=== PATIENT | male | born 1990 | race Caucasian/White ===

== ENCOUNTER 2018-10-02 19:14 | Emergency (ER) | payer OTHER ==
--- NOTE | 2018-10-02 19:32 | PDOC ---
Rapid Medical Evaluation Time Seen by Provider: 10/02/18 19:29 Medical Evaluation: Allergies Allergy/AdvReac Type Severity Reaction Status Date / Time No Known Allergies Allergy Verified 07/07/15 00:08 10/02/18 19:30 Pt c/o: cp and dizziness since this afternoon, hx anxiety, denies drugs, recent inguinal hernia repair Pt on brief exam: vss, lcta Pt ordered for: ekg, cbc, comp, ua pt to proceed to the ED Discharge Disposition - Diagnosis Dizziness - Referrals - Patient Instructions - Post Discharge Activity
[2018-10-02 19:51] VITALS: BP 135/82; PULSE 85; TEMP 98.9; BMI 29.2
[2018-10-02 20:23] LABS: BASO % 0.7 % (0-2.0); EOS % 0.4 % (0-4.5); HEMATOCRIT 44.9 % (35.4-49); HEMOGLOBIN 15.2 GM/dL (11.7-16.9); LYMPH % 21.1 % (8-40); MCH 29.4 pg (25.7-33.7); MCHC 33.9 g/dl (32.0-35.9); MEAN CELL VOLUME 86.7 fl (80-96); MONO % 5.8 % (3.8-10.2); PLATELET COUNT 171 K/MM3 (134-434); RBC 5.18 M/mm3 (4.00-5.60); RDW 14.8 % (11.9-15.9); WHITE BLOOD COUNT 7.2 K/mm3 (4.0-10.0)
[2018-10-02 20:24] LABS: PH,URINE 6.5 (5.0-8.0); URINE APPEARANCE CLEAR; URINE BILIRUBIN NEGATIVE (NEGATIVE); URINE COLOR YELLOW; URINE GLUCOSE (UA) NEGATIVE (NEGATIVE); URINE KETONE NEGATIVE (NEGATIVE); URINE LEUK ESTERASE NEGATIVE (NEGATIVE); URINE NITRITE NEGATIVE (NEGATIVE); URINE PROTEIN NEGATIVE (NEGATIVE); URINE UROBILINOGEN 0.2 mg/dL (0.2-1.0)
--- NOTE | 2018-10-02 20:39 | PDOC ---
History of Present Illness - General Chief Complaint: Palpitations Stated Complaint: DIZZINESS/PALPATATIONS Time Seen by Provider: 10/02/18 19:29 History Source: Patient Exam Limitations: Clinical Condition - History of Present Illness Initial Comments: 10/02/18 20:34 Patient with history of anxiety and no other medical history present with complaint of sudden onset of rapid heartbeat with shortness of breath sensation while watching TV over 2 hours ago. Patient reported he was watching TV yesterday feeling the heart beating fast and tried drinking water to see if resolved but never resolved so he called 911. Denies chest pain now, dizziness, nausea or vomiting or sweats. Denies numbness or tingling sensation. Denies any other symptoms Timing/Duration: 1-3 hours, resolved prior to arrival Past History - Past Medical History Allergies/Adverse Reactions: Allergies Allergy/AdvReac Type Severity Reaction Status Date / Time No Known Allergies Allergy Verified 07/07/15 00:08 Home Medications: Ambulatory Orders Dibucaine 1% Top/Rectal Oint [Nupercainal (NF) -] 1 applic RC ASDIR #1 tube 09/15 levoFLOXacin [Levaquin -] 500 mg PO DAILY #7 tablet 07/07/15 metroNIDAZOLE [Flagyl -] 500 mg PO BID #14 tablet 07/07/15 COPD: No - Surgical History Abdominal Surgery: Yes (hernia repair) Appendectomy: Yes - Suicide/Smoking/Psychosocial Hx Smoking History: Never smoked Have you smoked in the past 12 months: No Information on smoking cessation initiated: No Hx Alcohol Use: No Drug/Substance Use Hx: No Review of Systems - Review of Systems Able to Perform ROS?: Yes Is the patient limited Portuguese proficient: No Constitutional: No: Malaise, Weakness HEENTM: No: Symptoms Reported, See HPI, Eye Pain, Blurred Vision, Tearing, Recent change in vision, Double Vision, Cataracts, Ear Pain, Ocular Prothesis, Ear Discharge, Nose Pain, Nose Congestion, Tinnitus, Nose Bleeding, Hearing Loss , Throat Pain, Throat Swelling, Mouth Pain, Dental Problems, Difficulty Swallowing, Mouth Swelling, Other Respiratory: Yes: Symptoms reported, See HPI, SOB at Rest (resolved). No: Cough , Orthopnea, Shortness of Breath, SOB with Exertion, Stridor, Wheezing, Productive cough, Hemoptysis, Other Cardiac (ROS): Yes: Symptoms Reported, See HPI, Palpitations. No: Chest Pain, Edema, Irregular Heart Rate, Lightheadedness, Syncope, Chest Tightness, Other ABD/GI: No: Nausea, Vomiting Neurological: No: Headache, Dizziness All Other Systems: Reviewed and Negative *Physical Exam - Vital Signs Last Vital Signs Temp Pulse Resp BP Pulse Ox 98.9 F 85 18 135/82 100 10/02/18 19:32 10/02/18 19:32 10/02/18 19:32 10/02/18 19:32 10/02/18 19:32 - Physical Exam Comments: 10/02/18 20:40 GENERAL: Well developed, well nourished. Awake and alert. No acute distress. HEENT: Normocephalic, atraumatic. PERRLA, EOMI. No conjunctival pallor. Sclera are non-icteric. Moist mucous membranes. Oropharynx is clear. NECK: Supple. Full ROM. CARDIOVASCULAR: Regular rate and rhythm. No murmurs, rubs, or gallops. Distal pulses are 2+ and symmetric. PULMONARY: No evidence of respiratory distress. Lungs clear to auscultation bilaterally. No wheezing, rales or rhonchi. ABDOMINAL: Soft. Non-tender. Non-distended. No rebound or guarding. No organomegaly. Normoactive bowel sounds. MUSCULOSKELETAL Normal range of motion at all joints. EXTREMITIES: No cyanosis. No clubbing. No edema. SKIN: Warm and dry. Normal capillary refill. NEUROLOGICAL: Alert, awake, appropriate. Gait is normal without ataxia. PSYCHIATRIC: Cooperative. Good eye contact. Appropriate mood General Appearance: Yes: Nourished, Appropriately Dressed. No: Apparent Distress ED Treatment Course - LABORATORY CBC & Chemistry Diagram: 10/02/18 20:00 - ADDITIONAL ORDERS Additional order review: Laboratory Results 10/02/18 20:00 Urine Color Yellow Urine Appearance Clear Urine pH 6.5 Ur Specific [place] 1.000 L Urine Protein Negative Urine Glucose (UA) Negative Urine Ketones Negative Urine Blood Negative Urine Nitrite Negative Urine Bilirubin Negative Urine Urobilinogen 0.2 Ur Leukocyte Esterase Negative - RADIOLOGY Radiology Studies Ordered: Category Date Time Status CHEST PA & LAT [RAD] Stat Radiology 10/02/18 20:33 Ordered Medical Decision Making - Medical Decision Making 10/02/18 20:39 Patient with history of anxiety and no other medical history present with complaint of sudden onset of rapid heartbeat with shortness of breath sensation while watching TV over 2 hours ago. Patient reported he was watching TV yesterday feeling the heart beating fast and tried drinking water to see if resolved but never resolved so he called 911. Denies chest pain now, dizziness, nausea or vomiting or sweats. Denies numbness or tingling sensation. Denies any other symptoms Clinical exam unremarkable with normal cardio and lung exam. Patient no acute distress. EKG shows normal sinus rhythm. Symptoms likely anxiety versus less likely cardiogenic pain. CBC, CMP and cardiac profile lab ordered. Checks x-ray ordered to rule out acute pathology 10/02/18 21:10 CBC,cardiac profile lab unremarkable. Patient asymptomatic. CXR shows no acute pathology. Will repeat cardiac lab in 3 hours for reassessment 10/02/18 22:24 Patient report he is always feeling tired and snores a lot when he sleeps. Report feeling tired now but denies any other symptoms 10/03/18 01:11 repeat cardiac profile negative. Patient asymptomatic and stable for discharge *DC/Admit/Observation/Transfer Diagnosis at time of Disposition: Dizziness, Palpitations Sleep apnea syndrome Qualifiers: Sleep apnea type: unspecified type Qualified Code(s): G47.30 - Sleep apnea, unspecified - Discharge Dispostion Condition at time of disposition: Stable Decision to Admit order: No - Referrals Referrals: Titus Blanc MD [Staff Physician] - Con Avila MD [Staff Physician] - - Patient Instructions Printed Discharge Instructions: DI for Obstructive Sleep Apnea -- Adult, DI for Palpitations Additional Instructions: Your labs and chest x-ray is normal. Your symptoms could be caused by sleep apnea. Even though your EKG was normal now, your might still have cardiac problem. Follow-up with referred bottom precipitator operator Dr. Gaming as soon as possible for evaluation and possible cardiac holter monitor. Follow-up with referred coding clerk Dr Avila for evaluation of sleep apnea - Post Discharge Activity
--- NOTE | 2018-10-03 10:15 | EKG ---
Test Reason : Blood Pressure : / mmHG Vent. Rate : 087 BPM Atrial Rate : 087 BPM P-R Int : 126 ms QRS Dur : 080 ms QT Int : 342 ms P-R-T Axes : 031 015 -08 degrees QTc Int : 411 ms NORMAL SINUS RHYTHM NONSPECIFIC T WAVE ABNORMALITY ABNORMAL ECG NO PREVIOUS ECGS AVAILABLE Confirmed by GERHARD MAYA MD ([id number]) on 10/03/2018 10:14:48 AM Referred By: Confirmed By:GERHARD MAYA MD
== END 2018-10-03 01:19 | disposition home or self-care (01) ==
LOC: JER 19:14
DX: R42 Dizziness and giddiness (principal); R00.2 Palpitations; G47.30 Sleep apnea, unspecified; F41.9 Anxiety disorder, unspecified
CPT/HCPCS: 36415; 71046-TC-FY; 81003; 82550; 84484; 85025; 93005; 93010; 99283-25

== ENCOUNTER 2018-11-28 20:24 | Emergency (ER) | payer OTHER ==
[2018-11-28 20:32] VITALS: BP 144/88; PULSE 105; TEMP 98.2; BMI 29.5
--- NOTE | 2018-11-28 20:33 | PDOC ---
Rapid Medical Evaluation Chief Complaint: Eye Problem Time Seen by Provider: 11/28/18 20:29 Medical Evaluation: Allergies Allergy/AdvReac Type Severity Reaction Status Date / Time No Known Allergies Allergy Verified 07/07/15 00:08 11/28/18 20:30 28 year old male c/o left eye lid swelling x 2 days. reports slight blurred vision when opening and closing the eye. PE: patient alert ox3. left eye lid swelling. slight conjunctival erythema A: left eye lid swelling P: patient to fast track for further management of care. Discharge Disposition - Diagnosis Hordeolum externum left eye, unspecified eyelid Qualifiers: Eyelid: upper Qualified Code(s): H00.014 - Hordeolum externum left upper eyelid - Referrals - Patient Instructions - Post Discharge Activity
[2018-11-28] MEDS ORDERED: ERYTHROMYCIN 0.5% OPHTHALMIC OINTMENT 3.5 GM TUBE OS ONE (20:56)
--- NOTE | 2018-11-28 20:56 | PDOC ---
History of Present Illness - General Chief Complaint: Eye Problem Stated Complaint: eye problem Time Seen by Provider: 11/28/18 20:29 History Source: Patient - History of Present Illness Initial Comments: 11/28/18 20:56 Chief complaint: Eye swelling Patient is a healthy 28-year-old male is complaining of 2 days of left eye swelling and tearing. A little itching. Patient does not wear contacts. GENERAL/CONSTITUTIONAL: No fever, weakness. dizziness HEAD, EYES, EARS, NOSE AND THROAT: No change in vision. + Eye swelling and pain. No ear pain or discharge. No sore throat. CARDIOVASCULAR: No chest pain RESPIRATORY: No shortness of breath or cough GASTROINTESTINAL: No pain, nausea, vomiting, diarrhea or constipation GENITOURINARY: No dysuria MUSCULOSKELETAL: No neck or back pain SKIN: No rash NEUROLOGIC: No headache, vertigo, loss of consciousness, or loss of sensation. GENERAL: The patient is awake, alert, and fully oriented, in no acute distress. HEAD: Normal with no signs of trauma. EYES: Pupils equal, round and reactive to light, sclera anicteric, conjunctiva with slight injection, upper eyelid is mildly edematous with tenderness at the lid line and small raised area that is tender, lower lids slightly edematous, no tenderness. No signs of gross infection. No hyphema, fundal exam grossly normal ENT: pharynx: no erythema, no exudate, uvula midline NECK: supple CHEST: clear, nontender, rr ABD: soft, nontender BACK: no tenderness or signs of injury EXTREMITIES: Normal range of motion, no edema. NEUROLOGICAL: Normal speech, normal gait. SKIN: Warm, Dry 11/28/18 21:00 Past History - Past Medical History Allergies/Adverse Reactions: Allergies Allergy/AdvReac Type Severity Reaction Status Date / Time fentanyl Allergy Verified 11/28/18 20:29 Home Medications: Ambulatory Orders Dibucaine 1% Top/Rectal Oint [Nupercainal (NF) -] 1 applic RC ASDIR #1 tube 09/15 levoFLOXacin [Levaquin -] 500 mg PO DAILY #7 tablet 07/07/15 metroNIDAZOLE [Flagyl -] 500 mg PO BID #14 tablet 07/07/15 COPD: No - Surgical History Abdominal Surgery: Yes (hernia repair) Appendectomy: Yes - Immunization History Immunization Up to Date: Yes - Suicide/Smoking/Psychosocial Hx Smoking History: Never smoked Have you smoked in the past 12 months: No Information on smoking cessation initiated: No Hx Alcohol Use: No Drug/Substance Use Hx: No *Physical Exam - Vital Signs Last Vital Signs Temp Pulse Resp BP Pulse Ox 98.2 F 105 H 17 144/88 96 11/28/18 20:30 11/28/18 20:30 11/28/18 20:30 11/28/18 20:30 11/28/18 20:30 Medical Decision Making - Medical Decision Making 11/28/18 2 Healthy 28-year-old male with 2 days of left eye swelling, discomfort, tearing and itching. Vision is intact, there is no swelling to the eye itself, the eye lid has minimal swelling, no signs of periorbital cellulitis. We will give patient erythromycin ointment as there is tenderness and a little bit of inflammation at the lip line, will also recommend Claritin for the swelling. Patient will need to follow-up with woods laborer *DC/Admit/Observation/Transfer Diagnosis at time of Disposition: Hordeolum externum left eye, unspecified eyelid Qualifiers: Eyelid: upper Qualified Code(s): H00.014 - Hordeolum externum left upper eyelid - Discharge Dispostion Disposition: HOME Condition at time of disposition: Stable - Referrals - Patient Instructions Additional Instructions: Use the erythromycin ointment 4 times a day 5-7 days as shown You can take Claritin daily for the itching and swelling and tearing. Return to the ER if fever, redness extends around the eye or worsening pain Follow-up with woods laborer tomorrow - Post Discharge Activity
[2018-11-28] MEDS ORDERED: ERYTHROMYCIN 0.5% OPHTHALMIC OINTMENT 3.5 GM TUBE ONE (20:58)
== END 2018-11-28 21:02 | disposition home or self-care (01) ==
LOC: JERFT 20:24
DX: H00.014 Hordeolum externum left upper eyelid (principal)
CPT/HCPCS: 99281-25

== ENCOUNTER 2020-06-12 17:21 | Emergency (ER) | payer OTHER ==
[2020-06-12 17:45] VITALS: BP 114/50; PULSE 98; TEMP 98.5; BMI 29.8
== END 2020-06-12 18:04 | disposition home or self-care (01) ==
LOC: JERFT 17:21
DX: H93.8X3 Other specified disorders of ear, bilateral (principal)
CPT/HCPCS: 99282-25

== ENCOUNTER 2020-09-17 02:50 | Emergency (ER) | payer OTHER ==
[2020-09-17] MEDS ORDERED: ACETAMINOPHEN 1000 MG/100 ML VIAL (NON FORMULARY) IVPB ONE (03:40)
[2020-09-17] MEDS ORDERED: LACTATED RINGERS SOLUTION 1000 ML INFUS.BAG IV ONE (03:40)
[2020-09-17] MEDS ORDERED: METOCLOPRAMIDE HCL INJECTION 10 MG/2 ML VIAL IVPUSH ONE (03:41)
[2020-09-17 03:55] VITALS: TEMP 99
[2020-09-17 04:09] VITALS: BMI 35.2
[2020-09-17] MEDS ORDERED: METOCLOPRAMIDE HCL INJECTION 10 MG/2 ML VIAL ONE (04:23)
[2020-09-17] MEDS ORDERED: ACETAMINOPHEN INJECTION 100 ML IVPB ONE (04:24)
[2020-09-17] MEDS ORDERED: KETOROLAC TROMETHAMINE 15 MG/ML VIAL IVPUSH ONE (05:34)
[2020-09-17] MEDS ORDERED: KETOROLAC TROMETHAMINE 15 MG/ML VIAL ONE (05:58)
[2020-09-17 06:13] VITALS: BP 106/57; PULSE 94
== END 2020-09-17 06:22 | disposition home or self-care (01) ==
LOC: JER 02:50
PROC: 3E0333Z Introduction of Anti-inflammatory into Peripheral Vein, Percutaneous Approach (ICD-10-PCS; principal; 2020-09-17)
PROC: 3E0333Z Introduction of Anti-inflammatory into Peripheral Vein, Percutaneous Approach (ICD-10-PCS; 2020-09-17)
PROC: 3E033GC Introduction of Other Therapeutic Substance into Peripheral Vein, Percutaneous Approach (ICD-10-PCS; 2020-09-17)
DX: R51.9 Headache, unspecified (principal)
CPT/HCPCS: 71045-TC-FY; 87804; 99284-25; C9803; J0131; U0003; U0005

== ENCOUNTER 2021-03-07 21:46 | Emergency (ER) | payer OTHER ==
[2021-03-07 22:31] VITALS: BP 128/83; PULSE 92; TEMP 97.8; BMI 39.4
[2021-03-07] MEDS ORDERED: KETOROLAC TROMETHAMINE 30 MG/1 ML VIAL IM ONE (23:27)
[2021-03-07] MEDS ORDERED: KETOROLAC TROMETHAMINE 30 MG/1 ML VIAL ONE (23:46)
== END 2021-03-08 03:08 | disposition home or self-care (01) ==
LOC: JERFT 21:46
PROC: 3E0233Z Introduction of Anti-inflammatory into Muscle, Percutaneous Approach (ICD-10-PCS; principal; 2021-03-07)
DX: M25.511 Pain in right shoulder (principal); M54.50 Low back pain, unspecified; W10.9XXA Fall (on) (from) unspecified stairs and steps, initial encounter
CPT/HCPCS: 72100-TC-FY; 73030-TC-RT-FY; 99284-25

== ENCOUNTER 2022-01-03 19:41 | Emergency (ER) | payer OTHER ==
[2022-01-03 19:56] VITALS: BP 138/72; PULSE 97; RESP 18; TEMP 98.2; BMI 33.9
== END 2022-01-03 21:01 | disposition home or self-care (01) ==
LOC: JERFT 19:41
DX: H00.013 Hordeolum externum right eye, unspecified eyelid (principal)
CPT/HCPCS: 99283-25

== ENCOUNTER 2022-05-30 04:45 | Day surgery (SDC) | payer OTHER ==
[2022-05-30 08:00] VITALS: BMI 35.2
[2022-05-30 11:57] VITALS: TEMP 98.7
[2022-05-30 14:51] VITALS: BP 127/70; PULSE 76; RESP 24
== END 2022-05-30 12:55 | disposition home or self-care (01) ==
LOC: JASU-ENDO 04:45
PROVIDERS: ATTEND Student in an Organized Health Care Education/Training Program
PROC: 0DB78ZX Excision of Stomach, Pylorus, Via Natural or Artificial Opening Endoscopic, Diagnostic (ICD-10-PCS; 2022-05-30)
PROC: 0DB68ZX Excision of Stomach, Via Natural or Artificial Opening Endoscopic, Diagnostic (ICD-10-PCS; 2022-05-30)
PROC: 0DB48ZX Excision of Esophagogastric Junction, Via Natural or Artificial Opening Endoscopic, Diagnostic (ICD-10-PCS; principal; 2022-05-30 10:30)
DX: K29.70 Gastritis, unspecified, without bleeding (principal); K21.00 Gastro-esophageal reflux disease with esophagitis, without bleeding
CPT/HCPCS: 82962; 88305-TC

== ENCOUNTER 2022-06-23 04:20 | Emergency (ER) | payer OTHER ==
[2022-06-23 05:02] VITALS: BP 117/80; PULSE 95; RESP 18; TEMP 98.7; BMI 33.0
== END 2022-06-23 06:31 | disposition home or self-care (01) ==
LOC: JER 04:20
DX: R00.8 Other abnormalities of heart beat (principal); T48.1X5A Adverse effect of skeletal muscle relaxants [neuromuscular blocking agents], initial encounter
CPT/HCPCS: 93005; 93010; 99283-25

== ENCOUNTER 2024-01-03 07:47 | Emergency (ER) | payer OTHER ==
[2024-01-03 08:47] VITALS: BMI 34.8
[2024-01-03] MEDS ORDERED: FAMOTIDINE 20 MG TABLET ONE (08:57)
[2024-01-03] MEDS ORDERED: LIDOCAINE 4% PATCH TP ONE (08:58)
[2024-01-03] MEDS ORDERED: ACETAMINOPHEN 325 MG TABLET (FP) ONE (08:58)
[2024-01-03] MEDS ORDERED: MAG HYDROX/AL HYDROX/SIMETH 30 ML UNIT-DOSE CUP ONE (08:58)
[2024-01-03] MEDS: ACETAMINOPHEN 500 MG TABLET (FP) PO ONE (09:09)
[2024-01-03] MEDS: FAMOTIDINE 20 MG TABLET PO ONE (09:09)
[2024-01-03] MEDS: MAG HYDROX/AL HYDROX/SIMETH 30 ML UNIT-DOSE CUP PO ONE (09:09)
[2024-01-03] MEDS: LIDOCAINE 5% TOPICAL PATCH TP ONE (09:14)
[2024-01-03 09:29] LABS: BASO % 0.4 % (0-2.0); EOS % 1.1 % (0-4.5); HEMATOCRIT 43.8 % (35.4-49); LYMPH % 25.3 % (8-40); MCH 29.5 pg (25.7-33.7); MCHC 34.3 g/dl (32.0-35.9); MEAN PLT VOLUME 9.6 fl (7.5-11.1); MONO % 4.7 % (3.8-10.2); NEUT % 68.5 % (42.8-82.8); PLATELET COUNT 173 10^3/uL (134-434); RBC 5.09 M/mm3 (4.00-5.60); RDW 13.8 % (11.9-15.9); WHITE BLOOD COUNT 5.9 K/mm3 (4.0-10.0)
[2024-01-03 09:42] LABS: POTASSIUM 4.3 mmol/L (3.5-5.1)
[2024-01-03 09:44] LABS: CALCIUM 9.5 mg/dL (8.5-10.1)
[2024-01-03 09:45] LABS: BLOOD UREA NITROGEN 18.6 mg/dL (7-18)
[2024-01-03 09:48] LABS: CREATININE 0.8 mg/dL (0.55-1.3)
[2024-01-03 09:49] LABS: BILIRUBIN,TOTAL 0.4 mg/dL (0.2-1)
[2024-01-03 09:50] LABS: TOT PROT 8.2 g/dl (6.4-8.2)
[2024-01-03 10:52] VITALS: BP 110/65; PULSE 83; RESP 20; TEMP 98.2
[2024-01-03 13:24] LABS: HIV INTERPRETATION NEGATIVE (NEGATIVE)
[2024-01-03] MEDS ORDERED: LIDOCAINE PATCH REMOVAL MC ONE (22:00)
== END 2024-01-03 10:52 | disposition home or self-care (01) ==
LOC: JER 07:47
DX: R07.89 Other chest pain (principal); R10.13 Epigastric pain; R00.2 Palpitations
CPT/HCPCS: 36415; 71046-TC-FY; 80053; 84484; 85025; 86803; 87389; 93005; 93010; 99285-25